=== PATIENT | female | born 1980 | race Caucasian/White ===

== ENCOUNTER 2021-10-19 18:46 | Emergency (ER) | payer SELFPAY ==
[~2021-10-19] VITALS: Ht 162.5 cm; Wt 93.0 kg
--- NOTE | 2021-10-19 18:50 | ED Back Pain ---
General Chief Complaint: Back Problems Stated Complaint: ABD/BACK PAIN History of Present Illness Date Seen by Provider: Oct 19, 2021 Time Seen by Provider: 18:50 Initial Comments 41-year-old female presents with some abdominal pain and feels like she is constipated. Patient reports that she has not had a bowel movement in 10 days. However patient has not multiple enemas. Patient is taken some laxatives, tried drinking some Epson salt drink. Patient reports that initially started out with some back pain which she was seen in our ER and told she was constipated. That she reports she has irritable bowel that ranges from constipation to diarrhea. Patient has not had a lot to eat over the last week. She denies any urinary symptoms. She reports that maybe she had a mild subjective fever. Patient is not having any vomiting. Allergies and Home Medications Allergies Coded Allergies: Penicillins (Verified Allergy, Unknown, 10/19/21) Sulfa (Sulfonamide Antibiotics) (Verified Allergy, Unknown, 10/19/21) gabapentin (Verified Allergy, Unknown, 10/19/21) Patient Home Medication List Home Medication List Reviewed: Yes Review of Systems Constitutional: see HPI; No chills EENTM: no symptoms reported Respiratory: no symptoms reported Cardiovascular: no symptoms reported Gastrointestinal: see HPI, abdominal pain, constipation Genitourinary: no symptoms reported Musculoskeletal: see HPI Skin: no symptoms reported Psychiatric/Neurological: No Symptoms Reported Physical Exam Vital Signs Vital Signs - First Documented 10/19/21 18:50 Temp 36.2 Pulse 100 Resp 18 B/P (MAP) 147/87 (107) Pulse Ox 95 O2 Delivery Room Air Capillary Refill : Height, Weight, BMI Height: '" Weight: lbs. oz. kg; BMI Method: General Appearance: No Apparent Distress, WD/WN Neck: Full Range of Motion Cardiovascular: Regular Rate, Rhythm, No Edema Respiratory: Lungs Clear, Normal Breath Sounds Gastrointestinal: Soft, Tenderness (Minimal diffuse tenderness) Genital/Rectal: Normal Rectal Exam Extremity: Normal Capillary Refill, Normal Inspection, Normal Range of Motion Neurologic/Psychiatric: Alert, Oriented x3, No Motor/Sensory Deficits, Normal Mood/Affect, web user experience strategist II-XII Norm as Tested Skin: Normal Color, Warm/Dry Progress/Results/Core Measures Results/Orders Lab Results Laboratory Tests Test 10/19/21 19:04 10/19/21 19:42 Range/Units White Blood Count 9.0 4.3-11.0 10^3/uL Red Blood Count 4.97 3.80-5.11 10^6/uL Hemoglobin 13.6 11.5-16.0 g/dL Hematocrit 41 35-52 % Mean Corpuscular Volume 83 80-99 fL Mean Corpuscular Hemoglobin 27 25-34 pg Mean Corpuscular Hemoglobin Concent 33 32-36 g/dL Red Cell Distribution Width 13.5 10.0-14.5 % Platelet Count 236 130-400 10^3/uL Mean Platelet Volume 11.6 9.0-12.2 fL Immature Granulocyte % (Auto) 0 % Neutrophils (%) (Auto) 61 42-75 % Lymphocytes (%) (Auto) 31 12-44 % Monocytes (%) (Auto) 6 0-12 % Eosinophils (%) (Auto) 1 0-10 % Basophils (%) (Auto) 0 0-10 % Neutrophils # (Auto) 5.5 1.8-7.8 10^3/uL Lymphocytes # (Auto) 2.8 1.0-4.0 10^3/uL Monocytes # (Auto) 0.5 0.0-1.0 10^3/uL Eosinophils # (Auto) 0.1 0.0-0.3 10^3/uL Basophils # (Auto) 0.0 0.0-0.1 10^3/uL Immature Granulocyte # (Auto) 0.0 0.0-0.1 10^3/uL Sodium Level 140 135-145 MMOL/L Potassium Level 4.1 3.6-5.0 MMOL/L Chloride Level 100 98-107 MMOL/L Carbon Dioxide Level 29 21-32 MMOL/L Anion Gap 11 5-14 MMOL/L Blood Urea Nitrogen 10 7-18 MG/DL Creatinine 0.64 0.60-1.30 MG/DL Estimat Glomerular Filtration Rate 112 BUN/Creatinine Ratio 16 Glucose Level 156 H 70-105 MG/DL Calcium Level 9.2 8.5-10.1 MG/DL Corrected Calcium 8.9 8.5-10.1 MG/DL Magnesium Level 2.1 1.6-2.4 MG/DL Total Bilirubin 0.3 0.1-1.0 MG/DL Aspartate Amino Transf (AST/SGOT) 11 5-34 U/L Alanine Aminotransferase (ALT/SGPT) 11 0-55 U/L Alkaline Phosphatase 87 40-136 U/L Total Protein 7.5 6.4-8.2 GM/DL Albumin 4.4 3.2-4.5 GM/DL Urine Color PALE YELLOW Urine Clarity CLEAR Urine pH 5.5 5-9 Urine Specific [place] 1.015 L 1.016-1.022 Urine Protein NEGATIVE NEGATIVE Urine Glucose (UA) NEGATIVE NEGATIVE Urine Ketones NEGATIVE NEGATIVE Urine Nitrite NEGATIVE NEGATIVE Urine Bilirubin NEGATIVE NEGATIVE Urine Urobilinogen 0.2 < = 1.0 MG/DL Urine Leukocyte Esterase NEGATIVE NEGATIVE Urine RBC (Auto) NEGATIVE NEGATIVE Urine RBC NONE /HPF Urine WBC 0-2 /HPF Urine Squamous Epithelial Cells 0-2 /HPF Urine Crystals NONE /LPF Urine Bacteria TRACE /HPF Urine Casts NONE /LPF Urine Mucus NEGATIVE /LPF Urine Culture Indicated NO Urine Test NEGATIVE NEGATIVE My Orders Orders - JARA,ALVA L DO Cbc With Automated Diff (10/19/21 18:57) Comprehensive Metabolic Panel (10/19/21 18:57) Hcg,Qualitative Urine (10/19/21 18:57) Magnesium (10/19/21 18:57) Ua Culture If Indicated (10/19/21 18:57) Abdomen Flat & Upright/Decub (10/19/21 18:57) Lactated Ringers (Lr 1000 Ml Iv Solution (10/19/21 18:57) Hyoscyamine Sl Tablet (Levsin Sl Tablet) (10/19/21 20:15) Dicyclomine Injection (Bentyl Injection) (10/19/21 20:15) Vital Signs/I&O 10/19/21 18:50 Temp 36.2 Pulse 100 Resp 18 B/P (MAP) 147/87 (107) Pulse Ox 95 O2 Delivery Room Air Progress Progress Note : Progress Note Patient with mild stool on x-ray otherwise no acute findings. Patient had a negative CT for similar symptoms 10 days ago at [facility]. I did discuss with patient that we would receive to her if she felt the need however I recommended against that due to radiation exposure and it being -10 days ago. Patient's symptoms worsen with movement. I discussed with her is likely musculoskeletal however she reports that she is tried all kinds of things and it does not work and she feels like it is inside. I did offer for her to try some Bentyl and Levsin. I recommended that if it continues she may want to follow-up with her primary care provider and consider an outpatient ultrasound of her right upper quadrant to look at her gallbladder. Recommended that she increase her fluid intake, eat plenty of fiber and drink plenty of fluids. Recommend if she feels that she needs something for stool to only take MiraLAX that at this time I would not recommend enemas or any other medications that she does not have a significant amount of stool on x-ray. Diagnostic Imaging Diagonstic Imaging: Xray Plain Films/CT/US/NM/MRI: abdomen Comments Date of Exam:10/19/21 ABDOMEN FLAT & UPRIGHT/DECUB INDICATION: Abdominal pain and constipation Abdominal film obtained at 7:25 p.m., supine and upright views are obtained. There is no free intraperitoneal air. Abdominal bowel gas pattern is unremarkable. There is moderate stool throughout the colon. There are no suspicious calcifications. Bony structures are unremarkable. There are surgical clips in the left side of the pelvis. IMPRESSION: Unremarkable abdominal radiographs. Reviewed: Reviewed by Me, Reviewed/Discussed Departure Impression Primary Impression: Back pain Qualified Codes: M54.6 - Pain in thoracic spine Additional Impression: Right upper quadrant abdominal pain Disposition: 01 HOME, SELF-CARE Condition: Stable Departure-Patient Inst. Patient Instructions: Abdominal Pain, Adult ED, Severe Abdominal Pain Add. Discharge Instructions: Lease follow-up with your primary care provider if symptoms continue to consider further outpatient evaluation and imaging such as possible ultrasound Recommend MiraLAX, high-fiber diet and plenty of fluids and ambulation if you feel that you are constipated. At this time I would not recommend enema since there is not a significant amount of stool on your x-ray All discharge instructions reviewed with patient and/or family. Voiced understanding. Scripts Hyoscyamine Sulfate (Levsin-Sl) 0.125 Mg Tab.subl 0.125 MG SL Q4H, #10 TAB 0 Refills Prov: ALVA JARA DO 10/19/21 Dicyclomine HCl (Dicyclomine HCl) 20 Mg Tablet 20 MG PO QID, #20 TAB Prov: JARA,ALVA L DO 10/19/21 LADONNA JARAR Tory DO Oct 19, 2021 18:50
[2021-10-19] MEDS ORDERED: LACTATED RINGERS 1,000 ML IV STA (18:57)
[2021-10-19 19:14] LABS: BASOPHILS % (AUTO) 0 % (0-10); EOSINOPHILS # (AUTO) 0.1 10^3/uL (0.0-0.3); EOSINOPHILS % (AUTO) 1 % (0-10); HEMATOCRIT 41 % (35-52); HEMOGLOBIN 13.6 g/dL (11.5-16.0); LYMPHOCYTES # (AUTO) 2.8 10^3/uL (1.0-4.0); LYMPHOCYTES % (AUTO) 31 % (12-44); MEAN CORPUSCULAR HEMOGLOBIN 27 pg (25-34); MEAN CORPUSCULAR HGB CONC 33 g/dL (32-36); MEAN CORPUSCULAR VOLUME 83 fL (80-99); MEAN PLATELET VOLUME 11.6 fL (9.0-12.2); MONOCYTES # (AUTO) 0.5 10^3/uL (0.0-1.0); MONOCYTES % (AUTO) 6 % (0-12); NEUTROPHILS # (AUTO) 5.5 10^3/uL (1.8-7.8); NEUTROPHILS % (AUTO) 61 % (42-75); PLATELET COUNT 236 10^3/uL (130-400)
[2021-10-19 19:36] LABS: CALCIUM 9.2 MG/DL (8.5-10.1); CREATININE SERUM 0.64 MG/DL (0.60-1.30); POTASSIUM 4.1 MMOL/L (3.6-5.0)
[2021-10-19 19:37] LABS: ALBUMIN 4.4 GM/DL (3.2-4.5); BILIRUBIN,TOTAL 0.3 MG/DL (0.1-1.0); MAGNESIUM 2.1 MG/DL (1.6-2.4); TOTAL PROTEIN 7.5 GM/DL (6.4-8.2)
--- NOTE | 2021-10-19 19:44 | Diagnostic Imaging Report ---
INDICATION: Abdominal pain and constipation Abdominal film obtained at 7:25 p.m., supine and upright views are obtained. There is no free intraperitoneal air. Abdominal bowel gas pattern is unremarkable. There is moderate stool throughout the colon. There are no suspicious calcifications. Bony structures are unremarkable. There are surgical clips in the left side of the pelvis. IMPRESSION: Unremarkable abdominal radiographs. Dictated by: Dictated on workstation # [id number]
[2021-10-19 19:49] LABS: BILIRUBIN,URINE NEGATIVE (NEGATIVE); CLARITY,URINE CLEAR; GLUCOSE, URINE (UA) NEGATIVE (NEGATIVE); KETONES,URINE NEGATIVE (NEGATIVE); LEUKOCYTE ESTERASE ,URINE NEGATIVE (NEGATIVE); NITRITE,URINE NEGATIVE (NEGATIVE); PH,URINE 5.5 (5-9); PROTEIN,URINE NEGATIVE (NEGATIVE)
[2021-10-19 19:54] LABS: BACTERIA,URINE TRACE /HPF; COLOR,URINE PALE YELLOW; SQUAMOUS EPITHELIAL CELL,UR 0-2 /HPF; WBC,URINE 0-2 /HPF
[2021-10-19] MEDS ORDERED: DICYCLOMINE 10 MG/ML (BENTYL) 2 ML AMP IM ONE (20:15)
[2021-10-19] MEDS ORDERED: HYOSCYAMINE 0.125 MG (LEVSIN) TAB PO ONE (20:15)
[2021-10-19] MEDS ORDERED: DICY20TA PO (20:22)
[2021-10-19] MEDS ORDERED: HYOS0.1283 SL (20:22)
[2021-10-19 20:34] VITALS: BP 138/82
== END 2021-10-19 20:35 | disposition home or self-care (01) ==
LOC: ER FS 18:48
DX: M54.9 Dorsalgia, unspecified (principal); R10.84 Generalized abdominal pain; Z28.310 Unvaccinated for COVID-19
CPT/HCPCS: 36415; 74019; 80053; 81000; 83735; 84703; 85025